=== PATIENT | female | born 1985 | race Caucasian/White ===

== ENCOUNTER 2019-10-20 12:49 | Emergency (ER) | payer BC ==
[2019-10-20] MEDS ORDERED: Ketorolac 60 MG/2 ML SDV IM ONE (13:18)
--- NOTE | 2019-10-20 13:30 | EDM.PDOC ---
ED HPI GENERAL MEDICAL PROBLEM - General Chief Complaint: Abdominal Pain Stated Complaint: SEVERE L SIDE ABD PAIN Time Seen by Provider: 10/20/19 13:10 Source of Information: Reports: Patient History Limitations: Reports: No Limitations - History of Present Illness INITIAL COMMENTS - FREE TEXT/NARRATIVE: 34-year-old female with intense left lower quadrant pain for the past 1 to 2 hours, she was assessed for left lower quadrant pain 2 days ago and was found to have a hemorrhagic left ovarian cyst. It was getting better but she had sudden onset of pain again this morning. No fevers or chills. This is a longstanding recurring problem. Pain is localized to the left lower quadrant, no urinary symptoms or no radiation to her back. Slight vaginal bleeding. She is allergic to "all NSAIDs". She is not on control because she is trying to get . Onset: Sudden Duration: Hour(s): (Sudden increase in pain within the last 2 hours) Location: Reports: Other (Left pelvis) Left Lower Abdomen Pain Score (Numeric/FACES): 8 - Related Data Allergies Allergy/AdvReac Type Severity Reaction Status Date / Time ciprofloxacin [From Cipro] Allergy Cannot Verified 10/20/19 13:21 Remember NSAIDS (Non-Steroidal Allergy Hives Verified 10/20/19 13:21 Anti-Inflamma Sulfa (Sulfonamide Allergy Cannot Verified 10/20/19 13:21 Antibiotics) Remember contrast dye Allergy Swelling Uncoded 10/20/19 13:21 Home Meds: Home Meds ALPRAZolam [Alprazolam] 1 mg PO QID 10/20/19 [History] Cyclobenzaprine HCl 10 mg PO BEDTIME PRN 10/20/19 [History] Eszopiclone 3 mg PO BEDTIME 10/20/19 [History] Prazosin HCl [Prazosin] 10 mg PO BEDTIME 10/20/19 [History] Zolpidem Tartrate 10 mg PO BEDTIME 10/20/19 [History] cephALEXin [Cephalexin] 500 mg PO TID 10/20/19 [History] lamoTRIgine [Lamotrigine] 250 mg PO DAILY 10/20/19 [History] ED ROS GENERAL - Review of Systems Review Of Systems: See Below Constitutional: Denies: Fever, Chills Respiratory: Denies: Shortness of Breath Cardiovascular: Denies: Chest Pain GI/Abdominal: Reports: Abdominal Pain : Reports: Other (Some mild vaginal bleeding) Skin: Reports: No Symptoms ED EXAM, GI/ABD - Physical Exam Exam: See Below Exam Limited By: No Limitations General Appearance: Alert, Mild Distress (Looks fairly uncomfortable) Eyes: Bilateral: Normal Appearance (No jaundice) Head: Atraumatic Respiratory/Chest: No Respiratory Distress GI/Abdominal Exam: Soft, Tender (Does react with some tenderness to the left lower quadrant and suprapubic area but no specific or significant guarding, no significant peritoneal irritation) Course - Vital Signs Last Recorded V/S: Last Vital Signs Temp 97 F 10/20/19 13:18 Pulse 117 H 10/20/19 13:18 Resp 20 10/20/19 13:18 BP 87/59 L 10/20/19 13:18 Pulse Ox 97 10/20/19 13:18 - Orders/Labs/Meds Labs: Laboratory Tests 10/20/19 Range/Units 13:42 WBC 6.7 (4.5-11.0) K/uL RBC 4.23 (3.30-5.50) M/uL Hgb 10.6 L (12.0-15.0) g/dL Hct 33.5 L (36.0-48.0) % MCV 79 L (80-98) fL MCH 25 L (27-31) pg MCHC 32 (32-36) % Plt Count 298 (150-400) K/uL Neut % (Auto) 74 H (36-66) % Lymph % (Auto) 16 L (24-44) % [place] % (Auto) 9 H (2-6) % Eos % (Auto) 0 L (2-4) % Baso % (Auto) 0 (0-1) % Meds: Medications Discontinued Medications Generic Name Dose Route Start Last Admin Trade Name Freq PRN Reason Stop Dose Admin Ketorolac Tromethamine 60 mg 10/20/19 13:18 10/20/19 13:30 Toradol IM 10/20/19 13:19 60 mg ONETIME ONE Administration - Re-Assessments/Exams Free Text/Narrative Re-Assessment/Exam: 10/20/19 13:38 Labs from 2 days ago was 11.1 hemoglobin, I did review her ultrasound as well. She was given an injection of Toradol 60 mg IM and we will watch for reaction, and a CBC was drawn. 10/20/19 14:01 Patient responded well to the IM Toradol with significant pain relief but no reaction. She was discharged with 6 doses of hydrocodone for extra pain control and will recheck in the next 24 to 48 hours if not continuing to improve. Her hemoglobin is now 10.6, this also should be rechecked in the next 48 to 72 hours if not improving. Another ultrasound may be necessary as well. Departure - Departure Time of Disposition: 14:23 Disposition: Home, Self-Care 01 Clinical Impression: Hemorrhagic cyst of left ovary - Discharge Information Instructions: Ovarian Cyst, [id number] Referrals: PCP,None [Primary Care Provider] - Forms: ED Department Discharge Care Plan Goals: Recheck in the next 48 to 72 hours if not significantly improving, or treat recheck even sooner if worsening despite treatment. Use hydrocodone for extra pain control over the next 24 hours. Sepsis Event Note (ED) - Evaluation Sepsis Screening Result: No Definite Risk - Focused Exam Vital Signs: Vital Signs Temp Pulse Resp BP Pulse Ox 10/20/19 13:18 97 F 117 H 20 87/59 L 97 10/20/19 13:07 97 F 117 H 20 87/59 L 97
== END 2019-10-20 14:23 | disposition home or self-care (01) ==
LOC: JP.ED 12:49
DX: N83.202 Unspecified ovarian cyst, left side (principal); Z88.1 Allergy status to other antibiotic agents; Z88.2 Allergy status to sulfonamides; Z91.041 Radiographic dye allergy status; Z88.8 Allergy status to other drugs, medicaments and biological substances; Z79.899 Other long term (current) drug therapy
CPT/HCPCS: 36415; 85025; 96372; 99284; J1885; 99283